=== PATIENT | male | born 1985 | race Caucasian/White ===

== ENCOUNTER 2019-07-24 19:12 | Emergency (ER) | payer OTHER ==
[~2019-07-24] VITALS: Ht 185.4 cm; Wt 81.8 kg
[2019-07-24 19:25] VITALS: BP 136/94
== END 2019-07-24 21:40 | disposition home or self-care (01) ==
LOC: ER 19:13
DX: S43.402A Unspecified sprain of left shoulder joint, initial encounter (principal); X58.XXXA Exposure to other specified factors, initial encounter; Y93.89 Activity, other specified; Y92.410 Unspecified street and highway as the place of occurrence of the external cause; Y99.8 Other external cause status
CPT/HCPCS: 73030; 73080; 99283